=== PATIENT | male | born 1955 | race Caucasian/White ===

== ENCOUNTER 2022-10-29 10:45 | Outpatient (CLI) | payer MEDICARE, SELFPAY ==
--- NOTE | ~2022-10-29 | XR_ITS ---
Left Knee Technique: AP, lateral, and sunrise views were obtained. Clinical History: Pain Findings: No fracture or dislocation is seen. Osseous alignment is anatomic. Joint spaces are preserv ed without degenerative or erosive change. Soft tissues are unremarkable. No joint effusion is seen. Impression: Unremarkable left knee radiographs. Reviewed, dictated and finalized at location . [employer] Impression: Unremarkable left knee radiographs.
== END 2022-10-29 10:46 | disposition home or self-care (01) ==
PROVIDERS: PCP Physician Assistant; Visit Provider Physician Assistant
DX: M25.562 Pain in left knee (principal)
CPT/HCPCS: 73562

== ENCOUNTER 2022-11-15 00:56 | Day surgery (SDC) | payer MEDICARE, SELFPAY ==
[2022-10-30 14:24] VITALS: BMI 28.5
--- NOTE | 2022-11-15 07:50 | WPDANESEPPF ---
Anes - Initial Pre Proc Eval Procedure: Operation Date: 11/15/22 09:30 Proposed Procedures p Screening Colonoscopy - Ronak Gomez MD Date/Time: 11/15/22 07:50 Surgeon: Ronak Gomez MD Pre Op Diagnosis: neoplasm screening Patient Data Age: 67 Gender: M Height: 1.83 m Weight: 95.25 kg Allergies Allergy/AdvReac Type Severity Reaction Status Date / Time No Known Allergies Allergy Verified 11/15/22 08:25 Home Medications Medication Instructions Recorded Confirmed Type aspirin 81 mg tablet 81 mg PO DAILY 10/30/22 11/15/22 History metformin 500 mg tablet 1,000 mg PO BID 10/30/22 11/15/22 History kodhszyyuxfi-epz-hiqml acid-vit 1 tablet PO DAILY 10/30/22 11/15/22 History K-lycop 400 mcg-20 mcg-370 mcg tablet (Men's 50 Plus Multivitamin) omega-3 fatty acids-vitamin E 1 cap PO DAILY 10/30/22 11/15/22 History 1,000 mg capsule omeprazole 20 mg capsule,delayed 20 mg PO DAILY 10/30/22 11/15/22 History release pravastatin 40 mg tablet 40 mg PO DAILY 10/30/22 11/15/22 History Patient hx anesthesia problems: none Family hx anesthesia problems: none Results Review: All pre-operative results and documents have been reviewed as part of the pre-operative evaluation. [facility]LY [facility] Past Medical History Medical History (Updated 11/15/22 @ 08:54 by Ronak Gomez MD) Diabetes type 2, controlled GERD (gastroesophageal reflux disease) Hyperlipidemia Surgical History Surgical History (Updated 11/15/22 @ 07:50 by John Samuels DO) History of cholecystectomy Social History Social History Smoking status: Never smoker Substance use: never Substance use type: does not use Living arrangements: with family Spiritual care concerns: No Anes - Eval Final PreProcedure Day of Procedure 11/15/22 07:50 Patient weight: overweight Heart: regular rate and rhythm Lungs: clear to auscultation Airway: Mallampati scale class II Neurological: alert and oriented Last oral intake: >/= 8 hours ASA classification: III Emergent: no Anesthetic plan: proceed Anesthesia type and monitoring: general GIVS and standard monitoring Results Review: All pre-operative results and documents have been reviewed as part of the pre-operative evaluation. Informed Consent: The patient's anesthetic plan and its attendant risks and benefits were discussed with the patient/family/POA. Questions were solicited and answers provided to the satisfaction of the patient/family/POA.
[2022-11-15 08:28] VITALS: BP 129/79; PULSE 93; RESP 18; TEMP 36.2; O2SAT 99
[2022-11-15] MEDS: LACTATED RINGERS 1,000 ML 150 ML IV CONT (08:41)
[2022-11-15 08:43] LABS: Glucose Point of Care 151 mg/dl (65-105)
--- NOTE | 2022-11-15 08:53 | P.HP_ITS ---
History of Present Illness History of Present Illness Consent: Risks, benefits, and alternatives have been discussed and questions answered. Patient agrees to proceed with procedure. Chief complaint: neoplasm screening Narrative: Sander Constantino is a 67 year old male Presents for screening colonoscopy. Patient has a prior history of colon polyps. Previously followed by Dr. Zhang. Most recent colonoscopy was 5 years ago. Patient reports that his current weight appetite and bowel movements are normal. Patient denies abdominal pain. He has had no bleeding. Family history is noncontributory. Review of Systems Review of Systems: Review of systems noncontributory. [facility] Past Medical History Medical History (Updated 11/15/22 @ 08:54 by Ronak Gomez MD) Diabetes type 2, controlled GERD (gastroesophageal reflux disease) Hyperlipidemia Surgical History Surgical History (Updated 11/15/22 @ 07:50 by John Samuels DO) History of cholecystectomy Social History Social History Smoking status: Never smoker Substance use: never Substance use type: does not use Living arrangements: with family Spiritual care concerns: No Meds Home Medications and Allergies Home Medications Medication Instructions Recorded Confirmed Type aspirin 81 mg tablet 81 mg PO DAILY 10/30/22 11/15/22 History metformin 500 mg tablet 1,000 mg PO BID 10/30/22 11/15/22 History tcgvjwxqbybg-lid-dhdcm acid-vit 1 tablet PO DAILY 10/30/22 11/15/22 History K-lycop 400 mcg-20 mcg-370 mcg tablet (Men's 50 Plus Multivitamin) omega-3 fatty acids-vitamin E 1 cap PO DAILY 10/30/22 11/15/22 History 1,000 mg capsule omeprazole 20 mg capsule,delayed 20 mg PO DAILY 10/30/22 11/15/22 History release pravastatin 40 mg tablet 40 mg PO DAILY 10/30/22 11/15/22 History Allergies Allergy/AdvReac Type Severity Reaction Status Date / Time No Known Allergies Allergy Verified 11/15/22 08:25 Vital Signs Vital Signs - 24 hr 11/15/22 08:28 Temperature 97.1 F L Pulse Rate 93 Respiratory Rate 18 Blood Pressure 129/79 Pulse Oximetry 99 Oxygen Delivery Room Air Exam Narrative: Physical exam reveals patient to be alert. Vital signs stable. HEENT exam is unremarkable. Patient is anicteric. Lungs are clear to auscultation and percussion. Heart is without murmur or extra sounds. Abdomen bowel sounds are present soft nontender with no organomegaly. Digital external rectal exam is normal. Assessment and Plan Assessment and plan (1) History of colon polyps: Code(s): Z86.010 - Personal history of colonic polyps Status: Acute Assessment and Plan: Patient has had colon polyps on previous exams. Plan for surveillance colonoscopy now. Consider this a 5 year intervals.
[2022-11-15 09:27] VITALS: BP 116/67; PULSE 77; RESP 23; TEMP 36.2; O2SAT 99
[2022-11-15 09:37] VITALS: BP 106/74; PULSE 77; RESP 19; TEMP 36.2; O2SAT 99
[2022-11-15 09:47] VITALS: BP 119/82; PULSE 71; RESP 25; TEMP 36.2; O2SAT 99
== END 2022-11-15 09:51 | disposition home or self-care (01) ==
PROVIDERS: PCP Physician Assistant; Visit Provider Internal Medicine Gastroenterology
PROC: 0DJD8ZZ Inspection of Lower Intestinal Tract, Via Natural or Artificial Opening Endoscopic (ICD-10-PCS; CPT 45378; principal; 2022-11-15 09:30)
DX: Z12.11 Encounter for screening for malignant neoplasm of colon (principal); K62.1 Rectal polyp; E11.9 Type 2 diabetes mellitus without complications; K21.9 Gastro-esophageal reflux disease without esophagitis; E78.5 Hyperlipidemia, unspecified; Z79.84 Long term (current) use of oral hypoglycemic drugs; Z79.82 Long term (current) use of aspirin
CPT/HCPCS: 45380; 82948; 88305; J2704; J7120